=== PATIENT | male | born 1970 | race African-American/Black ===

== ENCOUNTER 2017-01-25 17:44 | Emergency (ER) | payer OTHER ==
[~2017-01-25] VITALS: Ht 170.2 cm; Wt 99.8 kg
[2017-01-25] MEDS ORDERED: NO HOME MEDICATION XX (18:10)
[2017-01-25] MEDS ORDERED: CYCLOBENZAPRINE5 M1 PO (19:43)
== END 2017-01-25 20:02 ==
LOC: EDMED 17:44
DX: M54.16 Radiculopathy, lumbar region (principal); M54.2 Cervicalgia; V49.50XA Passenger injured in collision with unspecified motor vehicles in traffic accident, initial encounter; Y92.410 Unspecified street and highway as the place of occurrence of the external cause